=== PATIENT | male | born 1985 | race American Indian/Alaskan Native ===

== ENCOUNTER 2020-03-26 16:34 | Emergency (ER) | payer MEDICAID ==
[2020-03-26] MEDS ORDERED: levETIRAcetam 1000 MG/NS 0.75% 1,000 MG/100 ML BAG IV ONE (18:16)
[2020-03-26 18:30] LABS: Hematocrit 50.9 % (35.5-45.6); Hemoglobin 17.1 gm/dl (11.8-15.2); Mean Corpuscular HGB Conc 34 % (32-34); Mean Corpuscular Volume 92 fl (84-94); Platelet Count 173 K/mm3 (140-440); Red Blood Count 5.51 M/mm3 (3.65-5.03); Red Cell Distribution Width 14.8 % (13.2-15.2)
[2020-03-26 18:37] LABS: Blood Urea Nitrogen 5 mg/dL (9-20); Calcium 9.5 mg/dL (8.4-10.2); Hemolysis Index 19
--- NOTE | 2020-03-26 18:43 | Emergency Department Report ---
ED Seizure HPI - General Chief Complaint: Seizure Stated Complaint: SEIZURE Time Seen by Provider: 03/26/20 18:04 Source: patient, EMS Mode of arrival: Stretcher Limitations: No Limitations - History of Present Illness Initial Comments: Patient is a 34-year-old F [place] male who is presenting status post seizure. Patient been off of his Keppra for the last several days as he did run out. Patient denies any head trauma headache nausea vomiting fevers chills or neck stiffness. - Related Data Previous Rx's Medication Instructions Recorded Last Taken Type Nicotine [Habitrol] 21 mg TD QDAY #14 patch 12/15/14 Unknown Rx Phenytoin [Dilantin] 200 mg PO BID #120 capsule 12/15/14 Unknown Rx Ziprasidone [Geodon] 20 mg PO QAM #30 capsule NS 12/15/14 Unknown Rx Ziprasidone [Geodon] 40 mg PO QHS #30 capsule 12/15/14 Unknown Rx Hyoscyamine Subl [Levsin Sl 0.125 0.125 mg SL Q6HR PRN #10 tab 06/08/15 Unknown Rx TAB] Loperamide [Imodium] 2 mg PO Q2HR #20 capsule 06/08/15 Unknown Rx levETIRAcetam [Keppra TAB] 500 mg PO BID #60 tablet 03/26/20 Unknown Rx Allergies Allergy/AdvReac Type Severity Reaction Status Date / Time No Known Allergies Allergy Unverified 10/02/13 12:17 ED Review of Systems ROS: Stated complaint: SEIZURE Other details as noted in HPI Comment: All other systems reviewed and negative ED Past Medical Hx - Past Medical History Hx Headaches / Migraines: No Hx Seizures: Yes Hx Psychiatric Treatment: Yes (SCHIZOPHRENIA) - Social History Smoking Status: Current Every Day Smoker Substance Use Type: Alcohol, Cocaine, Marijuana - Medications Home Medications: Home Medications Medication Instructions Recorded Confirmed Last Taken Type Nicotine [Habitrol] 21 mg TD QDAY #14 patch 12/15/14 Unknown Rx Phenytoin [Dilantin] 200 mg PO BID #120 capsule 12/15/14 Unknown Rx Ziprasidone [Geodon] 20 mg PO QAM #30 capsule NS 12/15/14 Unknown Rx Ziprasidone [Geodon] 40 mg PO QHS #30 capsule 12/15/14 Unknown Rx Hyoscyamine Subl [Levsin Sl 0.125 0.125 mg SL Q6HR PRN #10 tab 06/08/15 Unknown Rx TAB] Loperamide [Imodium] 2 mg PO Q2HR #20 capsule 06/08/15 Unknown Rx levETIRAcetam [Keppra TAB] 500 mg PO BID #60 tablet 03/26/20 Unknown Rx ED Physical Exam - General Limitations: No Limitations General appearance: alert, in no apparent distress - Head Head exam: Present: atraumatic, normocephalic - Eye Eye exam: Present: normal appearance - ENT ENT exam: Present: mucous membranes moist - Neck Neck exam: Present: normal inspection - Respiratory Respiratory exam: Present: normal lung sounds bilaterally. Absent: respiratory distress, wheezes, rales, rhonchi - Cardiovascular Cardiovascular Exam: Present: regular rate, normal rhythm, normal heart sounds. Absent: systolic murmur, diastolic murmur, rubs, gallop - GI/Abdominal GI/Abdominal exam: Present: soft, normal bowel sounds. Absent: distended, tenderness, rebound - Rectal Rectal exam: Present: deferred - Extremities Exam Extremities exam: Present: normal inspection - Back Exam Back exam: Present: normal inspection - Neurological Exam Neurological exam: Present: alert, oriented X3 - Psychiatric Psychiatric exam: Present: normal affect, normal mood - Skin Skin exam: Present: warm, dry, intact, normal color. Absent: rash ED Course Vital Signs 03/26/20 16:44 Temperature 98.7 F Pulse Rate 88 Respiratory 18 Rate Blood Pressure 117/70 O2 Sat by Pulse 99 Oximetry ED Medical Decision Making - Lab Data Result diagrams: 03/26/20 18:07 03/26/20 18:07 - Medical Decision Making Patient's laboratory studies within normal limits. He was loaded with a gram of Keppra will be discharged home. Critical care attestation.: If time is entered above; I have spent that time in minutes in the direct care of this critically ill patient, excluding procedure time. ED Disposition Clinical Impression: Seizure disorder, Seizure secondary to subtherapeutic anticonvulsant medication Disposition: DC-01 TO HOME OR SELFCARE Is pt being admited?: No Does the pt Need Aspirin: No Condition: Stable Instructions: Epilepsy Referrals: PRIMARY CARE, [Primary Care Provider] - 3-5 Days Time of Disposition: 18:42
[2020-03-26 18:57] LABS: BUN/Creatinine Ratio 7
[2020-03-26 22:23] VITALS: BP 120/80
== END 2020-03-26 20:40 | disposition home or self-care (01) ==
LOC: ED 16:34
DX: G40.909 Epilepsy, unspecified, not intractable, without status epilepticus (principal); G43.909 Migraine, unspecified, not intractable, without status migrainosus; F20.9 Schizophrenia, unspecified; F17.200 Nicotine dependence, unspecified, uncomplicated; F12.10 Cannabis abuse, uncomplicated; F14.10 Cocaine abuse, uncomplicated; Z79.899 Other long term (current) drug therapy
CPT/HCPCS: 36415; 80048; 85027; 96374; 99284; J1953